=== PATIENT | male | born 1990 | race African-American/Black ===

== ENCOUNTER 2021-12-23 11:34 | Emergency (ER) | payer SELFPAY | END 2021-12-23 12:52 | disposition home or self-care (01) | LOC: CSHERS 11:34 | DX: S33.5XXA Sprain of ligaments of lumbar spine, initial encounter (principal); X50.0XXA Overexertion from strenuous movement or load, initial encounter; G40.909 Epilepsy, unspecified, not intractable, without status epilepticus | CPT/HCPCS: 99283 ==